=== PATIENT | female | born 1950 | race Caucasian/White ===

== ENCOUNTER → 2016-08-06 | Outpatient (CLI) | payer MEDICARE, OTHER ==
[~2016-08-06] MED LIST: AMIT-46 PO; CITA40TA6 PO; LEVO88TA7 PO; LORA0.5T86 PO; METO25TA6 PO; MIRT15TA PO; MORP15TA78 PO; ONDA4TAB4 PO; OXYC1TAB13 PO; POTA10CA29 PO; PRAV20TA4 PO; WARF2TAB6 PO; WARF4TAB6 PO
--- NOTE | 2016-08-06 12:20 | DI ---
Indication: ITS.REASON: M54.5 LOW BACK PAIN PROCEDURE: LUMBAR SPINE 2-3 VIEWS: Encounter: Initial Comparison: Acute abdomen series dated April 12, 2016 Findings: Alignment of the lumbar spine shows degenerative grade 1 anterolisthesis of L4 on L5. There is mild biconcave wedge compression deformity at L1 which might be slightly worsened from the prior study. Mild disk space narrowing at L3-L4 and L4-L5. Degenerative facet disease at L4-S1. Calcifications in the subcutaneous tissues of the back. Impression: Degenerative disk and facet disease of the lumbar spine with possible slight worsening in a mild L1 compression fracture. .
== END ==
LOC: IMA 11:28
PROVIDERS: ATTEND Family Medicine
DX: M43.16 Spondylolisthesis, lumbar region (principal); M47.817 Spondylosis without myelopathy or radiculopathy, lumbosacral region; M51.36 Other intervertebral disc degeneration, lumbar region; M48.56XA Collapsed vertebra, not elsewhere classified, lumbar region, initial encounter for fracture; M54.5 Low back pain

== ENCOUNTER → 2016-08-21 | Outpatient (CLI) | payer MEDICARE, OTHER ==
[~2016-08-21] MED LIST changes: +ALBU1.252 AEROSOL; +AMLO5TAB2 PO; +ATOR10TA64 PO; +CYCL5TAB PO; +FOLI1TAB15 PO; +FURO80TA3 PO; +METO10TA3 PO; +MINO100T PO; +POTA20TA10
--- NOTE | 2016-08-21 14:29 | DI ---
Indication: ITS.REASON: R52 CHRONIC BACK PAIN PROCEDURE: MRI LUMBAR SPINE W/O CONTRAST: Encounter: Initial Comparison: Lumbar spine radiographs dated August 06, 2016 Technique: Multiplanar multisequence MR imaging of the lumbar spine was performed without contrast. Findings: Alignment of the lumbar spine is stable. There is degenerative grade 1 anterolisthesis of L4 on L5. There is a superior endplate compression deformity of L1 with adjacent bone marrow edema suggesting a recent injury or reinjury. The remaining vertebral body heights are maintained. Degenerative endplate changes at L4-L5. Conus medullaris terminates normally at L1. The paraspinal soft tissues are within normal limits. Segmental analysis: T12-L1: No focal disk herniation, central canal or neural foraminal stenosis. L1-L2: No focal disk herniation or central canal stenosis. No neural foraminal narrowing. L2-L3: Mild broad central protrusion with degenerative facet disease contributing to mild central canal stenosis. Mild left foraminal stenosis. No significant right foraminal narrowing. L3-L4: Degenerative facet hypertrophy with an annular disk bulge contributes to mild central canal stenosis. Moderate right and mild to moderate left neural foraminal stenosis. L4-L5: Degenerative facet hypertrophy with listhesis and mild disk bulging contributes to moderate central canal stenosis. Moderate right and severe left neural foraminal stenosis. There is disk material compressing the exiting left L4 nerve root. L5-S1: No focal disk herniation or central canal stenosis. No neural foraminal narrowing. Impression: 1. Acute edema in the L1 vertebra suggesting a recent compression fracture or worsening in an existing fracture. 2. Degenerative disk and facet disease, greatest at L4-L5 with moderate central canal and severe left neural foraminal stenosis. .
== END ==
LOC: IMA 13:18
PROVIDERS: ATTEND Family Medicine
DX: M48.06 Spinal stenosis, lumbar region (principal); M47.896 Other spondylosis, lumbar region; M51.26 Other intervertebral disc displacement, lumbar region; R60.0 Localized edema; R93.7 Abnormal findings on diagnostic imaging of other parts of musculoskeletal system

== ENCOUNTER 2016-08-26 07:23 | Outpatient (CLI) | payer MEDICARE, OTHER ==
[~2016-08-26] VITALS: Ht 170.2 cm; Wt 116.0 kg
[~2016-08-26 07:23] MED LIST changes: -ALBU1.252 AEROSOL; -AMLO5TAB2 PO; -ATOR10TA64 PO; -CYCL5TAB PO; -FOLI1TAB15 PO; -FURO80TA3 PO; +LIDOCAINE 1% (10mg/ml) 2ml SDV INJ ONE; +LR 1,000 ML IV SCH; -METO10TA3 PO; -MINO100T PO; -POTA20TA10
[2016-08-26 07:55] VITALS: Ht 170.2 cm; Wt 116.0 kg
[2016-08-26 07:56] VITALS: BP 142/67; PULSE 99; RESP 17; TEMP 98.6; O2SAT 96
[2016-08-26] MEDS ORDERED: CEFAZOLIN 1 GRAM INJECTION IV ONE (08:00)
[2016-08-26] MEDS ORDERED: CYCL5TAB PO (08:19)
[2016-08-26] MEDS ORDERED: FOLI1TAB15 PO (08:19)
[2016-08-26] MEDS ORDERED: AMLO5TAB2 PO (08:19)
[2016-08-26] MEDS ORDERED: POTA20TA10 (08:19)
[2016-08-26] MEDS ORDERED: FURO80TA3 PO (08:19)
[2016-08-26] MEDS ORDERED: ATOR10TA64 PO (08:19)
[2016-08-26] MEDS ORDERED: METO10TA3 PO (08:19)
[2016-08-26] MEDS ORDERED: MINO100T PO (08:19)
[2016-08-26] MEDS ORDERED: ALBU1.252 AEROSOL (08:25)
[2016-08-26 09:19] LABS: INR 1.25 (0.76-1.04); PROTHROMBIN TIME 13.6 SEC (9.31-12.49)
[2016-08-26] MEDS ORDERED: FENTANYL 100mcg/2ml INJECTION ONE (09:28)
[2016-08-26] MEDS ORDERED: MIDAZOLAM 2mg/2ml INJECTION ONE ×2 (09:29→10:07)
[2016-08-26] MEDS ORDERED: LIDOCAINE 1% (10mg/ml) 30ml SDV ONE (09:32)
[2016-08-26] MEDS ORDERED: NORMAL SALINE 500 ML IV ONE (09:38)
[2016-08-26 10:30] VITALS: BP 163/77; PULSE 95; RESP 19; TEMP 98.2; O2SAT 97
[2016-08-26 10:45] VITALS: BP 140/67; PULSE 100; RESP 15; O2SAT 95
[2016-08-26 11:00] VITALS: BP 131/71; PULSE 96; RESP 21; O2SAT 96
[2016-08-26 11:15] VITALS: BP 135/73; PULSE 94; RESP 14; O2SAT 93
[2016-08-26 11:30] VITALS: BP 134/66; PULSE 94; RESP 13; O2SAT 94
--- NOTE | 2016-08-26 14:43 | DI ---
Indication: ITS.REASON PROCEDURE: VERTEBRAL AUGMENTATION, LUMBAR: Encounter: Initial Comparison: INDICATION: Osteoporotic compression fracture, unresponsive to standard medical management. Severe back pain. Informed consent was obtained. A "timeout" was performed prior to the procedure to confirm the patient's identity and the planned procedure. Moderate sedation was provided during the procedure with fentanyl and Versed titrated intravenously over 30 minutes. The patient was continuously monitored with an independent trained nurse observer using pulse oximetry, EKG monitoring, and intermittent blood pressure monitoring. The patient was prepped and draped in sterile manner using maximal sterile barrier technique. Local anesthesia was provided with 1% lidocaine. The 11-gauge guide needle was advanced into the left pedicle of L1 using fluoroscopic guidance. A cavity was then created centrally within the vertebral body using a Techul[employer] mechanical bone tamp device. A curved needle was then placed with its tip in the anterior center of the vertebral body. In this location, polymethyl methacrylate cement was injected under fluoroscopic control. Good filling of the vertebral body was obtained. No complications occurred. Patient tolerated the procedure well. IMPRESSION: Uncomplicated vertebroplasty under fluoroscopic guidance. TOTAL FLUOROSCOPIC TIME: 6.5 minutes. .
== END 2016-08-26 11:43 | disposition home or self-care (01) ==
LOC: CATH 07:23
PROVIDERS: ATTEND Radiology Body Imaging
DX: M48.56XA Collapsed vertebra, not elsewhere classified, lumbar region, initial encounter for fracture (principal); Z79.01 Long term (current) use of anticoagulants; Z79.899 Other long term (current) drug therapy
CPT/HCPCS: 22514; 85610; J2250; J3010